=== PATIENT | female | born 1930 | race Caucasian/White ===

== ENCOUNTER 2016-05-02 09:27 | Observation (INO) | payer MEDICARE, OTHER ==
[2016-05-02] MEDS ORDERED: Albuterol/Ipratropium NEB.SOL* Albuterol 2.5 MG/Ipratropium 0.5 MG 3 ML INH ONE (10:56)
[2016-05-02 11:38] LABS: Hematocrit 43 % (35-47); Hemoglobin 13.8 g/dl (12.0-16.0); Mean Corpuscular HGB Conc 32 g/dl (31-36); Mean Corpuscular Hemoglobin 29 pg (27-31); Mean Corpuscular Volume 90 fL (80-97); Mean Platelet Volume 8 um3 (7.4-10.4); Red Blood Count 4.77 10^6/ul (4.0-5.4); Red Cell Distribution Width 15 % (10.5-15); White Blood Count 14.3 10^3/ul (3.5-10.8)
[2016-05-02] MEDS: NS 0.9% 1000 ML* 2,000 ML IV ONE ×2 (11:44→12:25)
--- NOTE | 2016-05-02 11:52 | RAD ---
INDICATION: Cough, shortness of breath, back pain. COMPARISON: Comparison is made with a prior chest x-ray study from July 08, 2015. TECHNIQUE: Dual-energy PA and lateral views of the chest were obtained. FINDINGS: The heart is within normal limits in size. Mediastinal and hilar contours appear within normal limits. The lungs are hyperinflated and clear. No pleural effusion is seen. The vertebra are osteopenic. No fracture is noted. IMPRESSION: FINDINGS SUGGESTIVE OF COPD, NO EVIDENCE FOR ACUTE FINDING.
[2016-05-02 11:55] LABS: Albumin 3.7 g/dL (3.2-5.2); BUN/Creatinine Ratio 18.1 (8-20); C Reactive Protein 21.1 mg/L (< 5.00); Calcium 9.4 mg/dL (8.6-10.3); EGFR African American 44.6 (>60); EGFR Non-African American 34.7 (>60); Globulin 3.6 g/dL (2-4); Magnesium 1.6 mg/dL (1.9-2.7); Potassium 3.9 mmol/L (3.5-5.0); Total Bilirubin 0.6 mg/dL (0.2-1.0); Total Protein 7.3 g/dL (6.4-8.9)
[2016-05-02 11:56] LABS: Troponin I 0.03 ng/mL (<0.04)
[2016-05-02 12:21] LABS: TSH (Thyroid Stimulating Horm) 3.43 mcIU/mL (0.34-5.60)
--- NOTE | 2016-05-02 12:27 | RAD ---
HISTORY: Left inguinal pain COMPARISONS: None TECHNIQUE: Multiple transverse and longitudinal images were obtained of the area of pain left inguinal region using grayscale and color Doppler imaging FINDINGS: Normal fatty and muscular tissue is noted. There is no appreciable hernia. There is no sonographic abnormality in the area of palpable abnormality. IMPRESSION: NO SONOGRAPHIC ABNORMALITY IN THE AREA OF PALPABLE ABNORMALITY. A NEGATIVE REPORT SHOULD NOT PRECLUDE OR DELAY THE EVALUATION OF A CLINICALLY SUSPICIOUS PALPABLE ABNORMALITY
[2016-05-02] MEDS ORDERED: Azithromycin IV(*) 500 MG in NS 0.9% 250 ML* 250 ML IVPB ONE (12:52)
[2016-05-02] MEDS ORDERED: cefTRIAXone(*) 1 GM in NS 0.9% 50 ML* 50 ML IVPB ONE (12:52)
[2016-05-02] MEDS ORDERED: Magnesium Sulfate 2 GM IV* 2 GM/50 ML BAG IVPB ONE (12:55)
[2016-05-02] MEDS: amLODIPine TAB* 5 MG PO SCH (14:22)
--- NOTE | 2016-05-02 14:25 | ADMNOTE ---
Subjective Date of Service: 05/02/16 Interval History: ADMISSION HISTORY AND PHYSICAL EXAM: Allergies Allergy/AdvReac Type Severity Reaction Status Date / Time Meperidine Allergy Unknown Verified 05/02/16 10:40 Reaction Details Sulfa Antibiotics Allergy Unknown Verified 05/02/16 10:40 Reaction Details Codeine AdvReac Stomach Verified 05/02/16 10:40 Cramps Home Medications Medication Instructions Recorded Confirmed Type Hydrochlorothiazide 25 mg PO DAILY 06/24/15 05/02/16 History [Hydrochlorothiazide-] Benzonatate [Benzonatate 200 MG 200 mg PO TID 05/02/16 05/02/16 History CAP] Losartan TAB* [Cozaar TAB*] 25 mg PO BID 05/02/16 05/02/16 History Omeprazole CAP* [Prilosec CAP* 20 20 mg PO DAILY 05/02/16 05/02/16 History MG] Rivaroxaban TAB(*) [Xarelto 15 15 mg PO DAILY 05/02/16 05/02/16 History mg(*)] Spironolactone [Aldactone 25 MG-] 25 mg PO DAILY 05/02/16 05/02/16 History HPI: The patient has had a cough for about a month, non-productive. Dr. Salomon rx' s benzonatate 200 mg but it didn't help at all. She was feeling more weak today and called her dil to drive her to the ED. She did not take her meds today. Family History: Findings - Melanoma, atrial fib, CAD, older sister with breast cancer. Social History: Findings - Son Fab is her SDM. Lives alone. Quit smoking many years ago. No alcohol abuse. Past Medical History: Unchanged from Admission - Chronic atrial fib, nonischemic cardiomyopathy, HTN, arthritis, TIA, partial hysterectomy, R knee surgery, choleycystectomy, disc surgery. Review of Systems - Measurements Intake and Output: Intake and Output Last 24 Hours 04/30/16 05/01/16 05/02/16 05/03/16 06:59 06:59 06:59 06:59 Intake Total 2049 Balance 2049 Weight 145 lb 9.6 oz Intake: IV Fluids 2049 - Review of Systems Constitutional Symptoms: Positive: Weight Gain Dermatology: Positive: Normal HEENT: Positive: Other - chronic hearing loss Eyes: Positive: Normal Thyroid: Positive: Normal Pulmonary: Positive: Cough Cardiology: Positive: Normal Gastroenterology: Positive: Normal Endocrinology: Positive: Normal Hematologic/Lymphatic: Negative: Anemia, Easy Brusing, Hx Leukemia, Hx Lymphoma, Use of Anticoagulant, Use of Antiplatelet Drugs, Other Neurology: Positive: Other - weakness Psychiatry: Positive: Normal Allergic/Immunologic: Negative: Hx Anaphylaxis, Hx Angioedema, Hx Environmental, Hx Seasonal, Athsma, Hx HIV, Immunocompromise, Swollen Glands LymphNodes, Other Objective Active Medications: Amlodipine Besylate (Norvasc Tab*) 2.5 mg PO DAILY [facility] Omeprazole (Prilosec Cap*) 20 mg PO DAILY [facility] Rivaroxaban (Xarelto(*)) 15 mg PO DAILY [facility] Spironolactone (Aldactone Tab*) 25 mg PO DAILY [facility] Vital Signs 05/02/16 05/02/16 05/02/16 09:30 11:54 11:59 Temperature 98.0 F Pulse Rate 91 69 72 Respiratory 18 17 Rate Blood Pressure 149/63 (mmHg) O2 Sat by Pulse 100 100 100 Oximetry 05/02/16 05/02/16 05/02/16 12:00 12:04 12:30 Temperature Pulse Rate 73 79 65 Respiratory Rate Blood Pressure 182/58 175/64 167/66 (mmHg) O2 Sat by Pulse 100 99 99 Oximetry 05/02/16 13:00 Temperature Pulse Rate 72 Respiratory Rate Blood Pressure 170/65 (mmHg) O2 Sat by Pulse 98 Oximetry Oxygen Devices in Use Now: None Appearance: Alert, supine on ED stretcher. In good spirits. Looks comfortable. Mild cough once during my visit. Eyes: No Scleral Icterus Ears/Nose/Mouth/Throat: Clear Oropharnyx, Mucous Membranes Moist Neck: NL Appearance and Movements; NL JVP, No Thyroid Enlargement, Masses Respiratory: Symmetrical Chest Expansion and Respiratory Effort, Clear to Auscultation, Clear to Percussion Cardiovascular: NL Sounds; No Murmurs; No JVD, RRR, No Edema, - Abdominal: NL Sounds; No Tenderness; No Distention, No Hepatosplenomegaly, - Extremities: No Edema, No Clubbing, Cyanosis, - Skin: No Rash or Ulcers, No Nodules or Sclerosis, - Neurological: Alert and Oriented x 3, NL Sensation Result Diagrams: 05/02/16 11:20 05/02/16 11:20 Assess/Plan/Problems-Billing Assessment: - Patient Problems (1) Cough Current Visit: Yes Status: Acute Code(s): R05 - COUGH SNOMED Code(s): 23764195 Comment: ? losartan reaction. Change to amlodipine. Azithromycin for possible acute bronchitis. (2) CKD (chronic kidney disease), stage III Current Visit: No Status: Chronic Priority: Medium Code(s): N18.3 - CHRONIC KIDNEY DISEASE, STAGE 3 (MODERATE) SNOMED Code(s): 390385666 Comment: Stable. (3) Afib Current Visit: No Status: Chronic Priority: Medium Code(s): I48.91 - UNSPECIFIED ATRIAL FIBRILLATION SNOMED Code(s): 46241488 Comment: Rate controlled on no cardiac meds. Continue Xarelto, renal dose. (4) Hyponatremia Current Visit: Yes Status: Acute Code(s): E87.1 - HYPO-OSMOLALITY AND HYPONATREMIA SNOMED Code(s): 32692864 Comment: Stop thiazide. Fup as outpt.
[2016-05-02] MEDS ORDERED: Enoxaparin(*) 30 MG/0.3 ML SYR SUBCUT SCH (15:00)
[2016-05-02] MEDS: traMADol TAB* 50 MG PO PRN ×2 (15:41→22:33)
[2016-05-02] MEDS ORDERED: Rivaroxaban TAB(*) 15 MG PO SCH (17:00)
--- NOTE | 2016-05-02 17:59 | ED ---
Constantin Sykes Erika, scribed for Nicola Vincent MD on 05/02/16 at 1057 . Respiratory - HPI Summary HPI Summary: Patient is an 85-year-old female presenting to the ED with a CC of cough for the past 3.5 weeks. Patient reports that cough has been constant, with occasional dark sputum. Cough was not alleviated by tessalon perles, and patient has been feeling increasingly weak and SOB, so her daughter brought her to the ED today. Associated symptoms include decreased appetite and upper back pain, which is constant but aggravated by cough. Patient denies fever, chills, chest pain, abdominal pain, urinary symptoms, abnormal BMs, and edema. Patient also complains of left groin past for the past few days, which radiates into the left leg only when walking. She denies associated masses. Patient denies Hx COPD and asthma, and does not use an inhaler. Hx HTN. Denies Hx diabetes. Patient lives alone, and is a former smoker. - History of Current Complaint Chief Complaint: EDGeneral Stated Complaint: BACK/GROIN PAIN-COUGH Time Seen by Provider: 05/02/16 10:30 Hx Obtained From: Patient, Family/Mid Level Game Designer - Daughter Onset/Duration: Gradual Onset, Lasting Weeks - 3.5 weeks, Worse Since - gradually Timing: Constant Initial Severity: Mild Current Severity: Moderate Pain Intensity: 10 Character: Cough (Productive) - occasionally productive Sputum Amount: Scant Aggravating Factor(s): URI Alleviating Factor(s): Nothing Associated Signs and Symptoms: SOB, URI - Allergy/Home Medications Allergies/Adverse Reactions: Allergies Allergy/AdvReac Type Severity Reaction Status Date / Time Meperidine Allergy Unknown Verified 05/02/16 10:40 Reaction Details Sulfa Antibiotics Allergy Unknown Verified 05/02/16 10:40 Reaction Details Codeine AdvReac Stomach Verified 05/02/16 10:40 Cramps Home Medications: Home Medications Benzonatate [Benzonatate 200 MG CAP] 200 mg PO TID 05/02/16 [History Confirmed 05/02/16] Losartan TAB* [Cozaar TAB*] 25 mg PO BID 05/02/16 [History Confirmed 05/02/16] Omeprazole CAP* [Prilosec CAP* 20 MG] 20 mg PO DAILY 05/02/16 [History Confirmed 05/02/16] Rivaroxaban TAB(*) [Xarelto 15 mg(*)] 15 mg PO DAILY 05/02/16 [History Confirmed 05/02/16] Spironolactone [Aldactone 25 MG-] 25 mg PO DAILY 05/02/16 [History Confirmed 10/11] PMH/Surg Hx/FS Hx/Imm Hx Endocrine/Hematology History: Reports: Hx Anticoagulant Therapy - Xeralto Denies: Hx Diabetes Cardiovascular History: Reports: Hx Atrial Fibrillation, Hx Congestive Heart Failure, Hx Hypertension, Other Cardiovascular Problems/Disorders - Cardioverted 06/29/2015 GI History: Reports: Hx Gastroesophageal Reflux Disease Musculoskeletal History: Reports: Hx Arthritis - both feet, knees, legs, Hx Back Problems - ruptured disc with repair Sensory History: Reports: Hx Contacts or Glasses, Hx Hearing Aid, Hx Hearing Problem Opthamlomology History: Reports: Hx Contacts or Glasses Neurological History: Reports: Hx Transient Ischemic Attacks (TIA) - 2010; had right hand weakness and occasional tremors - Surgical History Surgery Procedure, Year, and Place: herniated disc repair 1962, choleystectomy 1966, rt knee arthroplasty, BLADDER SLING, APPENDECTOMY Hx Anesthesia Reactions: No - Immunization History Date of Tetanus Vaccine: none Date of Influenza Vaccine: none Infectious Disease History: No Infectious Disease History: Denies: Hx Clostridium Difficile, Hx Hepatitis, Hx Human Immunodeficiency Virus (HIV), Hx of Known/Suspected MRSA, Hx Shingles, Hx Tuberculosis, Hx Known/ Suspected VRE, Hx Known/Suspected VRSA, History Other Infectious Disease, Traveled Outside the [place] in Last 30 Days - Family History Known Family History: Positive: Other - breast CA - Social History Lives: Alone Alcohol Use: None Hx Substance Use: No Substance Use Type: Reports: None Hx Tobacco Use: Yes Smoking Status (MU): Former Smoker Length of Time of Smoking/Using Tobacco: QUIT IN THE 1970s Have You Smoked in the Last Year: No Review of Systems Negative: Fever, Chills Negative: Chest Pain Positive: Shortness Of Breath, Cough Gastrointestinal: Other - decreased appetite Negative: Abdominal Pain Genitourinary: Other - left groin pain Negative: dysuria, frequency Positive: Myalgia - upper back. Negative: Edema Positive: Weakness All Other Systems Reviewed And Are Negative: Yes Physical Exam Triage Information Reviewed: Yes Vital Signs On Initial Exam: Initial Vitals Temp Pulse Resp BP Pulse Ox 98.0 F 91 18 149/63 100 05/02/16 09:30 05/02/16 09:30 05/02/16 09:30 05/02/16 09:30 05/02/16 09:30 Vital Signs Reviewed: Yes Appearance: Positive: No Pain Distress, Ill-Appearing - mildly Skin: Positive: Warm, Skin Color Reflects Adequate Perfusion, Dry Head/Face: Positive: Normal Head/Face Inspection Eyes: Positive: EOMI, BETI ENT: Positive: Normal ENT inspection Neck: Positive: Supple, Nontender Respiratory/Lung Sounds: Positive: Breath Sounds Present, Rhonchi Cardiovascular: Positive: RRR Abdomen Description: Positive: Nontender, Soft Bowel Sounds: Positive: Present Pelvic Exam: Positive: other - Tenderness to the left groin with no masses palpated Musculoskeletal: Positive: Normal, Strength/ROM Intact Neurological: Positive: Normal, Sensory/Motor Intact, Alert, Oriented to Person Place, Time Psychiatric: Positive: Affect/Mood Appropriate - Robb Coma Scale Coma Scale Total: 15 Diagnostics - Vital Signs Vital Signs Temp Pulse Resp BP Pulse Ox 05/02/16 09:30 98.0 F 91 18 149/63 100 - Laboratory Lab Results: Lab Results 05/02/16 05/02/16 05/02/16 Range/Units 11:20 11:20 11:20 WBC 14.3 H (3.5-10.8) 10^3/ul RBC 4.77 (4.0-5.4) 10^6/ul Hgb 13.8 (12.0-16.0) g/dl Hct 43 (35-47) % MCV 90 (80-97) fL MCH 29 (27-31) pg MCHC 32 (31-36) g/dl RDW 15 (10.5-15) % Plt Count 302 (150-450) 10^3/ul MPV 8 (7.4-10.4) um3 Neut % (Auto) 81.4 (38-83) % Lymph % (Auto) 10.2 L (25-47) % Sullivan % (Auto) 7.8 (1-9) % Eos % (Auto) 0.2 (0-6) % Baso % (Auto) 0.4 (0-2) % Absolute Neuts (auto) 11.7 H (1.5-7.7) 10^3/ul Absolute Lymphs (auto) 1.5 (1.0-4.8) 10^3/ul Absolute Monos (auto) 1.1 H (0-0.8) 10^3/ul Absolute Eos (auto) 0 (0-0.6) 10^3/ul Absolute Basos (auto) 0.1 (0-0.2) 10^3/ul Absolute Nucleated RBC 0 10^3/ul Nucleated RBC % 0 INR (Anticoag Therapy) 1.98 H (0.89-1.11) APTT 70.4 H (26.0-36.3) seconds D-Dimer, Quantitative 225 (Less Than 230) ng/mL Sodium 131 L (133-145) mmol/L Potassium 3.9 (3.5-5.0) mmol/L Chloride 98 L (101-111) mmol/L Carbon Dioxide 27 (22-32) mmol/L Anion Gap 6 (2-11) mmol/L BUN 26 H (6-24) mg/dL Creatinine 1.44 H (0.51-0.95) mg/dL Est GFR ( Amer) 44.6 (>60) Est GFR (Non-Af Amer) 34.7 (>60) BUN/Creatinine Ratio 18.1 (8-20) Glucose 226 H (70-100) mg/dL Lactic Acid (0.5-2.0) mmol/L Calcium 9.4 (8.6-10.3) mg/dL Magnesium 1.6 L (1.9-2.7) mg/dL Total Bilirubin 0.60 (0.2-1.0) mg/dL AST 22 (13-39) U/L ALT 22 (7-52) U/L Alkaline Phosphatase 79 (34-104) U/L Total Creatine Kinase 32 (10-223) U/L CK-MB (CK-2) 2.9 (0.6-6.3) ng/mL Troponin I 0.03 (<0.04) ng/mL C-Reactive Protein 21.10 H (< 5.00) mg/L B-Natriuretic Peptide ( - 100) pg/mL Total Protein 7.3 (6.4-8.9) g/dL Albumin 3.7 (3.2-5.2) g/dL Globulin 3.6 (2-4) g/dL Albumin/Globulin Ratio 1.0 (1-3) Lipase 36 (11.0-82.0) U/L TSH 3.43 (0.34-5.60) mcIU/mL 05/02/16 05/02/16 Range/Units 11:20 11:20 WBC (3.5-10.8) 10^3/ul RBC (4.0-5.4) 10^6/ul Hgb (12.0-16.0) g/dl Hct (35-47) % MCV (80-97) fL MCH (27-31) pg MCHC (31-36) g/dl RDW (10.5-15) % Plt Count (150-450) 10^3/ul MPV (7.4-10.4) um3 Neut % (Auto) (38-83) % Lymph % (Auto) (25-47) % Sullivan % (Auto) (1-9) % Eos % (Auto) (0-6) % Baso % (Auto) (0-2) % Absolute Neuts (auto) (1.5-7.7) 10^3/ul Absolute Lymphs (auto) (1.0-4.8) 10^3/ul Absolute Monos (auto) (0-0.8) 10^3/ul Absolute Eos (auto) (0-0.6) 10^3/ul Absolute Basos (auto) (0-0.2) 10^3/ul Absolute Nucleated RBC 10^3/ul Nucleated RBC % INR (Anticoag Therapy) (0.89-1.11) APTT (26.0-36.3) seconds D-Dimer, Quantitative (Less Than 230) ng/mL Sodium (133-145) mmol/L Potassium (3.5-5.0) mmol/L Chloride (101-111) mmol/L Carbon Dioxide (22-32) mmol/L Anion Gap (2-11) mmol/L BUN (6-24) mg/dL Creatinine (0.51-0.95) mg/dL Est GFR ( Amer) (>60) Est GFR (Non-Af Amer) (>60) BUN/Creatinine Ratio (8-20) Glucose (70-100) mg/dL Lactic Acid 2.3 H* (0.5-2.0) mmol/L Calcium (8.6-10.3) mg/dL Magnesium (1.9-2.7) mg/dL Total Bilirubin (0.2-1.0) mg/dL AST (13-39) U/L ALT (7-52) U/L Alkaline Phosphatase (34-104) U/L Total Creatine Kinase (10-223) U/L CK-MB (CK-2) (0.6-6.3) ng/mL Troponin I (<0.04) ng/mL C-Reactive Protein (< 5.00) mg/L B-Natriuretic Peptide 301 H ( - 100) pg/mL Total Protein (6.4-8.9) g/dL Albumin (3.2-5.2) g/dL Globulin (2-4) g/dL Albumin/Globulin Ratio (1-3) Lipase (11.0-82.0) U/L TSH (0.34-5.60) mcIU/mL Result Diagrams: 05/02/16 11:20 05/02/16 11:20 Lab Statement: Any lab studies that have been ordered have been reviewed, and results considered in the medical decision making process. - Radiology CXR Radiology Interpretation Completed By: Radiologist - IMPRESSION: FINDINGS SUGGESTIVE OF COPD, NO EVIDENCE FOR ACUTE FINDING. - Ultrasound No standard instances Ultrasound Interpretation Completed By: Radiologist - Left soft tissue US - IMPRESSION: NO SONOGRAPHIC ABNORMALITY IN THE AREA OF PALPABLE ABNORMALITY. A NEGATIVE REPORT SHOULD NOT PRECLUDE OR DELAY THE EVALUATION OF A CLINICALLY SUSPICIOUS PALPABLE ABNORMALITY - EKG 11:40 Cardiac Rate: NL - at 68 bpm EKG Rhythm: Atrial Fibrillation EKG Interpretation: Sagging ST in the lateral leads Re-Evaluation - Re-Evaluation First Eval Re-Evaluation Time: 13:03 Comment: Discussed lab and CXR results with patient and daughter. Discussed possibility of admission, and patient would like to be admitted. Disposition - Course Assessment/Plan: ADMIT TO HOSPITALIST STABLE. - Diagnoses Provider Diagnoses: Bronchitis, Weakness - Physician Notifications Discussed Care Of Patient With: Dr. Martines (hospitalist) at 13:02 - agrees to admit Discharge - Discharge Plan Condition: Stable Disposition: ADMITTED TO [facility] documentation as recorded by the Constantin friedman Erika accurately reflects the service I personally performed and the decisions made by me, Nicola Vincent MD.
[2016-05-02 22:56] LABS: Urine Bilirubin Negative (Negative); Urine Glucose Negative (Negative); Urine Nitrite Negative (Negative)
[2016-05-03] MEDS: traMADol TAB* 50 MG PO PRN ×2 (04:37→11:14)
[2016-05-03] MEDS ORDERED: oxyCODONE/Acetamin 5/325 MG* TAB PO PRN (08:20)
[2016-05-03] MEDS: amLODIPine TAB* 5 MG PO SCH (08:52)
[2016-05-03] MEDS ORDERED: Spironolactone TAB* 25 MG PO SCH (09:00)
[2016-05-03] MEDS ORDERED: Rivaroxaban TAB(*) 15 MG PO SCH (09:00)
[2016-05-03] MEDS ORDERED: Omeprazole CAP* 20 MG PO SCH (09:00)
[2016-05-03] MEDS ORDERED: Azithromycin TAB* 250 MG PO SCH (11:00)
--- NOTE | 2016-05-03 11:10 | RAD ---
Indication: Pelvic pain, inability to walk. Single view of the pelvis demonstrates sacroiliac joints demonstrate mild degenerative changes. Pelvic ring is intact. No fractures identified. IMPRESSION: Mild degenerative changes of the left sacroiliac joint. No fracture is noted.
--- NOTE | 2016-05-03 12:58 | DCNOTE ---
"Subjective Date of Service: 05/03/16 Interval History: Cough better. Still has L groin pain only when walking or getting up. Family History: Findings - Melanoma, atrial fib, CAD, older sister with breast cancer. Social History: Findings - Son Fab is her SDM. Lives alone. Quit smoking many years ago. No alcohol abuse. Past Medical History: Unchanged from Admission - Chronic atrial fib, nonischemic cardiomyopathy, HTN, arthritis, TIA, partial hysterectomy, R knee surgery, choleycystectomy, disc surgery. Objective Active Medications: Amlodipine Besylate (Norvasc Tab*) 2.5 mg PO DAILY [facility] Last Admin: 05/03/16 08:52 Dose: 2.5 mg Azithromycin (Zithromax Tab*) 250 mg PO DAILY [facility] Last Admin: 05/03/16 11:14 Dose: 250 mg Omeprazole (Prilosec Cap*) 20 mg PO DAILY [facility] Last Admin: 05/03/16 08:51 Dose: 20 mg Oxycodone/Acetaminophen (Percocet 5/325 Tab*) 1 tab PO Q4H PRN PRN Reason: PAIN Last Admin: 05/03/16 08:53 Dose: 1 tab Rivaroxaban (Xarelto(*)) 15 mg PO 1700 [facility] Last Admin: 05/02/16 16:39 Dose: 15 mg Spironolactone (Aldactone Tab*) 25 mg PO DAILY [facility] Last Admin: 05/03/16 08:51 Dose: 25 mg Tramadol HCl (Ultram*) 50 mg PO Q6H PRN PRN Reason: PAIN Last Admin: 05/03/16 11:14 Dose: 50 mg Vital Signs 05/02/16 05/02/16 05/02/16 13:30 14:00 15:15 Temperature 97.8 F Pulse Rate 70 84 79 Respiratory 14 21 18 Rate Blood Pressure 151/61 168/70 154/73 (mmHg) O2 Sat by Pulse 96 98 100 Oximetry 05/02/16 05/02/16 05/02/16 15:20 15:41 17:37 Temperature Pulse Rate Respiratory 18 18 15 Rate Blood Pressure (mmHg) O2 Sat by Pulse Oximetry 05/02/16 05/02/16 05/02/16 20:33 22:33 23:29 Temperature 98.1 F 97.6 F Pulse Rate 72 78 Respiratory 18 18 20 Rate Blood Pressure 135/44 115/49 (mmHg) O2 Sat by Pulse 95 99 Oximetry 05/03/16 05/03/16 05/03/16 00:33 04:02 04:37 Temperature 98.2 F Pulse Rate 74 Respiratory 18 20 18 Rate Blood Pressure 140/62 (mmHg) O2 Sat by Pulse 97 Oximetry 05/03/16 05/03/16 05/03/16 06:37 07:44 08:00 Temperature 97.5 F Pulse Rate 67 Respiratory 16 18 18 Rate Blood Pressure 139/60 (mmHg) O2 Sat by Pulse 100 Oximetry 05/03/16 05/03/16 05/03/16 08:01 08:53 11:14 Temperature Pulse Rate Respiratory 18 15 16 Rate Blood Pressure 150/68 (mmHg) O2 Sat by Pulse Oximetry Oxygen Devices in Use Now: None Appearance: Alert, in a chair. In good spirits. Looks comfortable. Ears/Nose/Mouth/Throat: Clear Oropharnyx, Mucous Membranes Moist Neck: NL Appearance and Movements; NL JVP, No Thyroid Enlargement, Masses Respiratory: Symmetrical Chest Expansion and Respiratory Effort, Clear to Auscultation, Clear to Percussion Cardiovascular: - - No L groin mass or tenderness Neurological: Alert and Oriented x 3, NL Sensation, - - Apparently very painful for her to walk, took 3 tiny steps for me. Result Diagrams: 05/02/16 11:20 05/02/16 11:20 Additional Lab and Data: Lab Results 05/02/16 05/02/16 05/02/16 Range/Units 11:20 11:20 11:20 WBC 14.3 H (3.5-10.8) 10^3/ul RBC 4.77 (4.0-5.4) 10^6/ul Hgb 13.8 (12.0-16.0) g/dl Hct 43 (35-47) % MCV 90 (80-97) fL MCH 29 (27-31) pg MCHC 32 (31-36) g/dl RDW 15 (10.5-15) % Plt Count 302 (150-450) 10^3/ul MPV 8 (7.4-10.4) um3 Neut % (Auto) 81.4 (38-83) % Lymph % (Auto) 10.2 L (25-47) % [place] % (Auto) 7.8 (1-9) % Eos % (Auto) 0.2 (0-6) % Baso % (Auto) 0.4 (0-2) % Absolute Neuts (auto) 11.7 H (1.5-7.7) 10^3/ul Absolute Lymphs (auto) 1.5 (1.0-4.8) 10^3/ul Absolute Monos (auto) 1.1 H (0-0.8) 10^3/ul Absolute Eos (auto) 0 (0-0.6) 10^3/ul Absolute Basos (auto) 0.1 (0-0.2) 10^3/ul Absolute Nucleated RBC 0 10^3/ul Nucleated RBC % 0 INR (Anticoag Therapy) 1.98 H (0.89-1.11) APTT 70.4 H (26.0-36.3) seconds D-Dimer, Quantitative 225 (Less Than 230) ng/mL Sodium 131 L (133-145) mmol/L Potassium 3.9 (3.5-5.0) mmol/L Chloride 98 L (101-111) mmol/L Carbon Dioxide 27 (22-32) mmol/L Anion Gap 6 (2-11) mmol/L BUN 26 H (6-24) mg/dL Creatinine 1.44 H (0.51-0.95) mg/dL Est GFR ( Amer) 44.6 (>60) Est GFR (Non-Af Amer) 34.7 (>60) BUN/Creatinine Ratio 18.1 (8-20) Glucose 226 H (70-100) mg/dL Lactic Acid (0.5-2.0) mmol/L Calcium 9.4 (8.6-10.3) mg/dL Magnesium 1.6 L (1.9-2.7) mg/dL Total Bilirubin 0.60 (0.2-1.0) mg/dL AST 22 (13-39) U/L ALT 22 (7-52) U/L Alkaline Phosphatase 79 (34-104) U/L Total Creatine Kinase 32 (10-223) U/L CK-MB (CK-2) 2.9 (0.6-6.3) ng/mL Troponin I 0.03 (<0.04) ng/mL C-Reactive Protein 21.10 H (< 5.00) mg/L B-Natriuretic Peptide ( - 100) pg/mL Total Protein 7.3 (6.4-8.9) g/dL Albumin 3.7 (3.2-5.2) g/dL Globulin 3.6 (2-4) g/dL Albumin/Globulin Ratio 1.0 (1-3) Lipase 36 (11.0-82.0) U/L TSH 3.43 (0.34-5.60) mcIU/mL 05/02/16 05/02/16 Range/Units 11:20 11:20 WBC (3.5-10.8) 10^3/ul RBC (4.0-5.4) 10^6/ul Hgb (12.0-16.0) g/dl Hct (35-47) % MCV (80-97) fL MCH (27-31) pg MCHC (31-36) g/dl RDW (10.5-15) % Plt Count (150-450) 10^3/ul MPV (7.4-10.4) um3 Neut % (Auto) (38-83) % Lymph % (Auto) (25-47) % [place] % (Auto) (1-9) % Eos % (Auto) (0-6) % Baso % (Auto) (0-2) % Absolute Neuts (auto) (1.5-7.7) 10^3/ul Absolute Lymphs (auto) (1.0-4.8) 10^3/ul Absolute Monos (auto) (0-0.8) 10^3/ul Absolute Eos (auto) (0-0.6) 10^3/ul Absolute Basos (auto) (0-0.2) 10^3/ul Absolute Nucleated RBC 10^3/ul Nucleated RBC % INR (Anticoag Therapy) (0.89-1.11) APTT (26.0-36.3) seconds D-Dimer, Quantitative (Less Than 230) ng/mL Sodium (133-145) mmol/L Potassium (3.5-5.0) mmol/L Chloride (101-111) mmol/L Carbon Dioxide (22-32) mmol/L Anion Gap (2-11) mmol/L BUN (6-24) mg/dL Creatinine (0.51-0.95) mg/dL Est GFR ( Amer) (>60) Est GFR (Non-Af Amer) (>60) BUN/Creatinine Ratio (8-20) Glucose (70-100) mg/dL Lactic Acid 2.3 H* (0.5-2.0) mmol/L Calcium (8.6-10.3) mg/dL Magnesium (1.9-2.7) mg/dL Total Bilirubin (0.2-1.0) mg/dL AST (13-39) U/L ALT (7-52) U/L Alkaline Phosphatase (34-104) U/L Total Creatine Kinase (10-223) U/L CK-MB (CK-2) (0.6-6.3) ng/mL Troponin I (<0.04) ng/mL C-Reactive Protein (< 5.00) mg/L B-Natriuretic Peptide 301 H ( - 100) pg/mL Total Protein (6.4-8.9) g/dL Albumin (3.2-5.2) g/dL Globulin (2-4) g/dL Albumin/Globulin Ratio (1-3) Lipase (11.0-82.0) U/L TSH (0.34-5.60) mcIU/mL Assess/Plan/Problems-Billing Assessment: - Patient Problems (1) Cough Current Visit: Yes Status: Acute Code(s): R05 - COUGH SNOMED Code(s): 72270861 Comment: ? losartan reaction. Change to amlodipine. Azithromycin for possible acute bronchitis. Rx for latter two transmitted. (2) CKD (chronic kidney disease), stage III Current Visit: No Status: Chronic Priority: Medium Code(s): N18.3 - CHRONIC KIDNEY DISEASE, STAGE 3 (MODERATE) SNOMED Code(s): 819268700 Comment: Stable. (3) Afib Current Visit: No Status: Chronic Priority: Medium Code(s): I48.91 - UNSPECIFIED ATRIAL FIBRILLATION SNOMED Code(s): 37164316 Comment: Rate controlled on no cardiac meds. Continue Xarelto, renal dose. (4) Hyponatremia Current Visit: Yes Status: Acute Code(s): E87.1 - HYPO-OSMOLALITY AND HYPONATREMIA SNOMED Code(s): 16998576 Comment: Stop thiazide. Fup as outpt. (5) Gait disorder Current Visit: Yes Status: Acute Code(s): R26.9 - UNSPECIFIED ABNORMALITIES OF GAIT AND MOBILITY SNOMED Code(s): 11729778 Comment: Patient thinks the pain is due to her coughing. She may be right. Pelvis X-ray unremarkable. US L groin neg. Pt prefers going home to any further w/up or hospitalization. Status and Disposition: Discharge now. Fup Dr. Salomon. Search Terms: li ibrahim, 1930 Search Date: 05/03/2016 12:47:26 PM This report was requested by: Darrin Martines | Reference #: [id number] There are no results for the search terms that you entered."
[2016-05-03 13:12] VITALS: BP 133/46
--- NOTE | 2016-05-04 02:09 | DS ---
DISCHARGE SUMMARY: DATE OF ADMISSION: DATE OF DISCHARGE: 05/03/16 HOSPITAL COURSE: This 85-year-old woman presented because of cough she has had for about a month. She had tried benzonatate 200 mg without any benefit. She probably has tried every uhkr-jgg-cegmiys cough syrup too. Basically nonproductive cough. It may have gotten a little worse in the last week. The patient was given azithromycin 500 mg in the ER, 250 mg on the day for discharge. She will complete a 5-day course at home. She said her losartan was discontinued. She said she felt the cough was a little better on the day of discharge. The patient complained of left groin pain. She thought it was precipitated by coughing and exacerbated by coughing. It interfered with her walking. She had ultrasound of that area in the emergency room, which showed no significant abnormalities. I also did an x-ray of the pelvis, which showed minor degenerative changes, but no fracture or dislocation. The patient had a lot of difficulty walking; however, she prefer to go home. If indeed her cough improves and the cough was responsible for her pain, this ought to subside over the next few days. She had a Percocet here in the hospital and tolerated that well and I gave her a prescription for supply at home. FINAL DIAGNOSES: 1. Cough possibly related to losartan and/or acute bronchitis. 2. Chronic kidney disease. 3. Atrial fibrillation. 4. Hyponatremia, possibly related to thiazide. DISCHARGE MEDICATIONS: 1. Azithromycin 250 mg daily for 3 more days. 2. Amlodipine 2.5 mg daily. 3. Oxycodone/acetaminophen 5/325 one every 4 hours p.r.n., not to exceed 4 per day. 4. Spironolactone 25 mg daily. 5. Omeprazole 20 mg daily. 6. Rivaroxaban 15 mg daily. The following medicines have been discontinued: Losartan and hydrochlorothiazide. CC: Dr. Salomon * [id number]/[facility] #: [id number] [facility]ITALCharles
== END 2016-05-03 15:00 | disposition home or self-care (01) ==
LOC: ED 09:27 → MEDTELE 13:03
PROVIDERS: ADMIT Internal Medicine; ATTEND Internal Medicine
DX: R05 Cough (principal); I13.0 Hypertensive heart and chronic kidney disease with heart failure and stage 1 through stage 4 chronic kidney disease, or unspecified chronic kidney disease; N18.2 Chronic kidney disease, stage 2 (mild); I50.9 Heart failure, unspecified; I48.91 Unspecified atrial fibrillation; Z79.01 Long term (current) use of anticoagulants; R06.02 Shortness of breath; E87.1 Hypo-osmolality and hyponatremia; Z79.899 Other long term (current) drug therapy; Z87.891 Personal history of nicotine dependence; Z88.2 Allergy status to sulfonamides; Z88.5 Allergy status to narcotic agent; Z88.8 Allergy status to other drugs, medicaments and biological substances
CPT/HCPCS: 36415; 71020; 72170; 80053; 81003; 82550; 82553; 83605; 83690; 83735; 83880; 84443; 84484; 85025; 85379; 85610; 85730; 86140; 87040; 93005; 96365; 96367; 99283; A9270-GY; G0378; J0456; J0696; J3475

== ENCOUNTER 2016-10-23 06:05 | Day surgery (SDC) | payer MEDICARE, OTHER ==
[~2016-10-23 06:05] MED LIST: Buffered Lidocaine 0.9% SYRIN* 5 ML/SYR SYRINGE INTRADERM ONE
[2016-10-23] MEDS ORDERED: ceFAZolin 2 GM PREMIX (*) 50 ML IVPB ONE (06:08)
[2016-10-23] MEDS ORDERED: Buffered Lidocaine 0.9% SYRIN* 5 ML/SYR SYRINGE ONE (06:08)
[2016-10-23] MEDS ORDERED: Methylene Blue 0.5 %* 50 MG/10 ML AMP IV ONE (07:09)
[2016-10-23] MEDS ORDERED: Mineral Oil Sterile, TOPICAL* 25 ML BTL ONE (07:09)
[2016-10-23] MEDS ORDERED: Bupivacaine 0.25% SDV* 30 ML ONE (07:42)
[2016-10-23] MEDS ORDERED: Lidocaine 2% W/EPI 1:100,000* 20 ML MDV ONE (07:42)
[2016-10-23] MEDS ORDERED: fentaNYL* 50 MCG/ML 2 ML VIAL (100 MCG VIAL) ONE (07:54)
[2016-10-23] MEDS ORDERED: Midazolam* 1 MG/ML 2 ML VIAL (2 MG) ONE (07:59)
[2016-10-23] MEDS ORDERED: Propofol* 10 MG/ML 20 ML BTL IV PUSH ONE (09:16)
[2016-10-23 10:49] VITALS: BP 139/52
== END 2016-10-23 10:48 | disposition home or self-care (01) ==
LOC: OR 06:05
PROVIDERS: ATTEND Plastic Surgery
DX: C44.219 Basal cell carcinoma of skin of left ear and external auricular canal (principal); I48.91 Unspecified atrial fibrillation; I10 Essential (primary) hypertension; I25.10 Atherosclerotic heart disease of native coronary artery without angina pectoris; Z79.01 Long term (current) use of anticoagulants; D50.9 Iron deficiency anemia, unspecified
CPT/HCPCS: 88305; 88331; 88332; A9270-GY; J0690; J2250; J2704; J3010

== ENCOUNTER 2018-12-09 13:10 | Observation (INO) | payer MEDICARE, OTHER ==
--- OUTSIDE RECORDS SUMMARY | 2018-12-09 14:26 | XMS REPORT | Continuity of Care Document ---
:1930 External Reference #:[id number] Author Name Conner Esquivel M.D. (transmitted by agent of provider Sindi Miramontes) Address [address] [place] [address] Care Team Providers Name Role Phone Mimi Su MD - Internal Medicine Care Team Information Cash Applications Representative Problems Active Problems Provider Date Essential hypertension Frances Monk NP Onset: 11/12/2016 Type 2 diabetes mellitus Hernan Snider M.D.,FACP Onset: 11/13/2017 Note: diet controlled Chronic atrial fibrillation Hernan Snider M.D.,FACP Onset: 11/13/2017 Chronic kidney disease stage 2 Hernan Snider M.D.,FACP Onset: 11/13/2017 Social History Type Date Description Comments Sex Unknown Tobacco Use Start: Unknown End: Former Cigarette Smoker Pt denies smoking Unknown cigar, pipe, e-cigarettes, or using chewing tobacco Smoking Status Reviewed: 10/17/18 Former Cigarette Smoker Pt denies smoking cigar, pipe, e-cigarettes, or using chewing tobacco ETOH Use 04/16/2018 Denies alcohol use Tobacco Use Start: Unknown End: Patient is a former smoked for a few Unknown smoker years in the early 70s Recreational Drug Use Denies Drug Use Exercise Type/Frequency Does not exercise Exercise Type/Frequency Does housework daily starting exercise class Allergies, Adverse Reactions, Alerts Active Allergies Reaction Severity Comments Date Sulfa Antibiotics Urticaria 12/17/2014 Norvasc 04/03/2017 Inactive Allergies NKDA 11/27/2012 Medications Active Medications SIG Qnty Indications Ordering Date Provider Four Wheeled Walker With 1units Mimi Su MD 08/26/2018 Seat Walker use as needed 1units Mimi Su MD 08/15/2018 Misc Hydralazine HCL Take 1 Tablet 90tabs I10 Susan Underwood, 07/11/2018 10mg Tablets By Mouth Two N.P. Times A Day( Med change 08/[address] Su) Omeprazole 1 by mouth 90caps I48.0 Frances 06/17/[address] every other INNA Monk daily Vitamin C 1 by mouth Unknown 500mg Capsules every day Vitamin D High Potency 1 by mouth Unknown 1000Unit every day Capsules Xarelto 1 by mouth 90tabs Frances 15mg Tablets every day INNA Monk Spironolactone 1 by mouth 90tabs Hernan Allen 25mg Tablets every day Corrina Snider,FACP Losartan Potassium Take 1 Tablet 180tabs Mimi Su MD 50mg Tablets By Mouth Twice A Day Hydrochlorothiazide take 1 capsule 180caps I48.0 Mimi Su MD 12.5mg twice a day Capsules Multi Adult Gummies 1 by mouth Unknown Chewtabs every day Probiotic 1 po daily Unknown Medications Administered in Office Medication SIG Qnty Indications Ordering Provider Date Inj, Regadenoson, 0.1 MG Conner Esquivel M.D. 11/12/2012 Injection Technetium TC 99M Tetrofosmin, Conner Esquivel M.D. 11/12/2012 Per Unit Dose Up To 40 Millicuries Injection Immunizations CPT Code Status Date Vaccine Reaction Lot # [id number] Given 11/12/2016 Pneumococcal Conjugate no immediate reaction, [id number] Vaccine 13 Valent For pt tolerated well Intramuscular Use [id number] Given 01/08/2008 Pneumonia Vaccine Vital Signs Date Vital Result Comment 10/17/2018 9:20am Height 60 inches 5'0" Weight 153.00 lb with shoes Heart Rate 70 /min BP Systolic 140 mmHg Lue reg cuff BP Diastolic 72 mmHg Lue reg cuff BP Systolic Sitting 148 mmHg Rue reg cuff BP Diastolic Sitting 76 mmHg Rue reg cuff BP Systolic Standing 144 mmHg Lue reg cuff BP Diastolic Standing 70 mmHg Lue reg cuff Respiratory Rate 16 /min BMI (Body Mass Index) 29.9 kg/m2 Ejection Fraction 55-60% date 07/18/18 ECHO 09/19/2018 2:00pm Height 60 inches 5'0" Weight 154.00 lb Heart Rate 74 /min BP Systolic Sitting 146 mmHg BP Diastolic Sitting 67 mmHg Body Temperature 97.1 F O2 % BldC Oximetry 98 % BMI (Body Mass Index) 30.1 kg/m2 Results Test Date Facility Test Result H/L Range Note Laboratory test 08/08/2018 [facility] Magnesium 1.8 mg/dL Low 1.9-2.7 [address] [place] [address] [phone] Basic Metabolic 08/08/2018 [facility] Sodium 137 mmol/L Normal 135-145 Panel [address] [place] [address] [phone] Potassium 4.9 mmol/L Normal 3.5-5.0 Chloride 105 mmol/L Normal 101-111 Co2 Carbon Dioxide 25 mmol/L Normal 22-32 Anion Gap 7 mmol/L Normal 2-11 Glucose 130 mg/dL High 70-100 Blood Urea Nitrogen 31 mg/dL High 6-24 Creatinine 1.49 mg/dL High 0.51-0.95 BUN/Creatinine Ratio 20.8 High 8-20 Calcium 10.1 mg/dL Normal 8.6-10.3 Egfr Non- 33.2 >60 Egfr 40.1 >60 1 Basic Metabolic 07/11/2018 [facility] Sodium 140 mmol/L Normal 135-145 [address] [place] [address] [phone] Potassium 4.0 mmol/L Normal 3.5-5.0 Chloride 106 mmol/L Normal 101-111 Co2 Carbon Dioxide 26 mmol/L Normal 22-32 Anion Gap 8 mmol/L Normal 2-11 Glucose 147 mg/dL High 70-100 Blood Urea Nitrogen 27 mg/dL High 6-24 Creatinine 1.34 mg/dL High 0.51-0.95 BUN/Creatinine Ratio 20.1 High 8-20 Calcium 9.8 mg/dL Normal 8.6-10.3 Egfr Non- 37.5 >60 Egfr 45.4 >60 2 Comp Metabolic 06/03/2018 [facility] Sodium 139 mmol/L Normal 135-145 Panel [address] [place] [address] [phone] Potassium 5.0 mmol/L Normal 3.5-5.0 Chloride 104 mmol/L Normal 101-111 Co2 Carbon Dioxide 28 mmol/L Normal 22-32 Anion Gap 7 mmol/L Normal 2-11 Glucose 134 mg/dL High 70-100 Blood Urea Nitrogen 25 mg/dL High 6-24 Creatinine 1.40 mg/dL High 0.51-0.95 BUN/Creatinine Ratio 17.9 Normal 8-20 Calcium 9.9 mg/dL Normal 8.6-10.3 Total Protein 6.9 g/dL Normal 6.4-8.9 Albumin 4.2 g/dL Normal 3.2-5.2 Globulin 2.7 g/dL Normal 2-4 Albumin/Globulin Ratio 1.6 Normal 1-3 Total Bilirubin 0.50 mg/dL Normal 0.2-1.0 Alkaline Phosphatase 68 U/L Normal 34-104 Alt 13 U/L Normal 7-52 Ast 15 U/L Normal 13-39 Egfr Non- 35.7 >60 Egfr 43.1 >60 3 Lipid Profile 06/03/2018 [facility] Triglycerides 128 mg/dL 4 (Trig/Chol/HDL) [address] [place] [address] [phone] Cholesterol 132 mg/dL 5 HDL Cholesterol 41.5 mg/dL 6 LDL Cholesterol 65 mg/dL 7 Laboratory test finding 06/03/2018 [facility] In House Hemoglobin A1c 6.5% 5-7 1 Because ethnic data is not always readily available, this report includes an eGFR for both -Americans and non- Americans. The National Kidney Disease Education Program (NKDEP) does not endorse the use of the MDRD equation for patients that are not between the ages of 18 and 70, are , have extremes of body size, muscle mass, or nutritional status, or are non- or non-. According to the National Kidney Foundation, irrespective of diagnosis, the stage of the disease is based on the level of kidney function: Stage Description GFR(mL/min/1.73 m(2)) 1 Kidney damage with normal or decreased GFR 90 2 Kidney damage with mild decrease in GFR 60-89 3 Moderate decrease in GFR 30-59 4 Severe decrease in GFR 15-29 5 Kidney failure <15 (or dialysis) 2 Because ethnic data is not always readily available, this report includes an eGFR for both -Americans and non- Americans. The National Kidney Disease Education Program (NKDEP) does not endorse the use of the MDRD equation for patients that are not between the ages of 18 and 70, are , have extremes of body size, muscle mass, or nutritional status, or are non- or non-. According to the National Kidney Foundation, irrespective of diagnosis, the stage of the disease is based on the level of kidney function: Stage Description GFR(mL/min/1.73 m(2)) 1 Kidney damage with normal or decreased GFR 90 2 Kidney damage with mild decrease in GFR 60-89 3 Moderate decrease in GFR 30-59 4 Severe decrease in GFR 15-29 5 Kidney failure <15 (or dialysis) 3 Because ethnic data is not always readily available, this report includes an eGFR for both -Americans and non- Americans. The National Kidney Disease Education Program (NKDEP) does not endorse the use of the MDRD equation for patients that are not between the ages of 18 and 70, are , have extremes of body size, muscle mass, or nutritional status, or are non- or non-. According to the National Kidney Foundation, irrespective of diagnosis, the stage of the disease is based on the level of kidney function: Stage Description GFR(mL/min/1.73 m(2)) 1 Kidney damage with normal or decreased GFR 90 2 Kidney damage with mild decrease in GFR 60-89 3 Moderate decrease in GFR 30-59 4 Severe decrease in GFR 15-29 5 Kidney failure <15 (or dialysis) 4 Desirable: <150 Borderline High: 150-199 High: 200-499 Very High: >500 5 Desirable: <200 Borderline High: 200-239 High: >239 6 Low: <40 Desirable: 40-60 High: >60 7 Desirable: <100 Near Optimal: 100-129 Borderline High: 130-159 High: 160-189 Very High: >189 Procedures Date Code Description Status 07/23/2018 11800 Holter Monitor Review (24 hr)dr lock & jean-paul only Completed 07/18/2018 32808 ECHO Transthoracic, Real-Time 2D With Doppler And Color Completed Flow 07/18/2018 17535 ECHO Transthoracic, Real-Time 2D With Doppler And Color Completed Flow 07/18/2018 16309 ECG Monitor/Recording W/Visual Superimposition Scanning Completed 07/11/2018 16530 EKG Tracing & Interpretation Completed 06/10/2018 [id number] Mammogram Completed 06/14/2016 [id number] Mammogram Completed 02/26/2012 [id number] Colonoscopy Completed Medical Devices Description No Information Available Encounters Type Date Location Provider Dx Diagnosis Office Visit 10/17/2018 [facility] Conner Allen I10 Essential ( primary) 10:30a Of Ifeanyi Esquivel M.D. hypertension I48.2 Chronic atrial fibrillation R94.31 Abnormal electrocardiogram [ECG] [EKG] Office Visit 09/19/2018 2:00p [facility] Internal Mimi Georges, I10 Essential ( primary) Medicine - [facility] hypertension G47.62 Sleep related leg cramps Office Visit 08/08/2018 10:00a [facility] Internal Mimi Georges, I10 Essential ( primary) Medicine - [facility] hypertension G47.62 Sleep related leg cramps Office Visit 07/11/2018 9:00a [facility] Susan S. I48.2 Chronic atrial Of Corporate Librarian Foster, N.P. fibrillation I12.9 Hypertensive chronic kidney disease w stg 1-4/unsp chr kdny N18.9 Chronic kidney disease, unspecified R06.00 Dyspnea, unspecified Office Visit 07/07/2018 2:40p [facility] Internal Mimi Georges, I10 Essential ( primary) Medicine - [facility] hypertension Office Visit 07/03/2018 10:20a [facility] Internal Mimi Georges, I10 Essential ( primary) Medicine - [facility] hypertension M54.2 Cervicalgia I48.2 Chronic atrial fibrillation Office Visit 06/03/2018 2:00p [facility] Internal Mimi Georges, E11.9 Type 2 diabetes Medicine - mellitus without [facility] complications I10 Essential (primary) hypertension I48.2 Chronic atrial fibrillation M54.2 Cervicalgia Assessments Date Code Description Provider 10/17/2018 I10 Essential (primary) hypertension Conner Esquivel M.D. 10/17/2018 I48.2 Chronic atrial fibrillation Conner Esquivel M.D. 10/17/2018 R94.31 Abnormal electrocardiogram [ECG] [EKG] Conner Esquivel M.D. 09/19/2018 I10 Essential (primary) hypertension Mimi Su MD 09/19/2018 G47.62 Sleep related leg cramps Mimi Su MD 08/08/2018 I10 Essential (primary) hypertension Mimi Su MD 08/08/2018 G47.62 Sleep related leg cramps Mimi Su MD 07/23/2018 I48.91 Unspecified atrial fibrillation Conner Esquivel M.D. 07/23/2018 I48.2 Chronic atrial fibrillation Conner Esquivel M.D. 07/18/2018 R06.00 Dyspnea, unspecified Conner Esquivel M.D. 07/18/2018 I48.91 Unspecified atrial fibrillation Nurse Visit IC 07/18/2018 I48.2 Chronic atrial fibrillation Nurse Visit IC 07/18/2018 R06.00 Dyspnea, unspecified Ica ECHO Schedule 07/11/2018 I48.2 Chronic atrial fibrillation Susan Underwood, N.P. 07/11/2018 R94.31 Abnormal electrocardiogram [ECG] [EKG] Conner Esquivel M.D. 07/11/2018 I12.9 Hypertensive chronic kidney disease with Susan S. Kj, N.P. stage 1 through sta 07/11/2018 N18.9 Chronic kidney disease, unspecified Susan Underwood, N.P. 07/11/2018 R06.00 Dyspnea, unspecified Susan Underwood, N.P. 07/07/2018 I10 Essential (primary) hypertension Mimi Su MD 07/03/2018 I10 Essential (primary) hypertension Mimi Su MD 07/03/2018 M54.2 Cervicalgia Mimi Su MD 07/03/2018 I48.2 Chronic atrial fibrillation Mimi Su MD 06/03/2018 E11.9 Type 2 diabetes mellitus without Mimi Su MD complications 06/03/2018 I10 Essential (primary) hypertension Mimi Su MD 06/03/2018 I48.2 Chronic atrial fibrillation Mimi Su MD 06/03/2018 M54.2 Cervicalgia Mimi Su MD Plan of Treatment Future Appointment(s):01/15/2019 10:00 am - Mimi Su MD at [facility] Internal Medicine - [facility]08 - Conner Esquivel M.D.I10 Essential (primary) hypertensionFollow up:6 tajpqyH45.2 Chronic atrial ewiwdlwmabvdO66.31 Abnormal electrocardiogram [ECG] [EKG]Recommendations:Consider seeing Dr Olson for shortness of breath Functional Status Description No Information Available Mental Status Description No Information Available Referrals Description No Information Available
[2018-12-09] MEDS ORDERED: HYDROcodone/ACETAMIN 5-325 MG* 1 TAB PO ONE (14:39)
[2018-12-09] MEDS ORDERED: Lidocaine PATCH 5%* 1 PATCH TRANSDERM ONE (14:41)
--- NOTE | 2018-12-09 14:41 | ED ---
Back Pain - HPI Summary HPI Summary: Patient is an 88-year-old female who presents emergency department for back pain after injury that occurred 5 days ago. Patient resides at home by herself. Patient states on Saturday she had her foot on the bathtub and bent over to clip her toenails when she developed severe low back pain. Has been taking Tylenol without improvement of pain. Pain occasionally radiates into right leg with occasional tingling. She denies numbness, weakness, urinary retention or incontinence. Denies fever, chest pain, shortness of breath, abdominal pain, dysuria. Symptoms are mild in severity. Movement makes symptoms worse. Nothing makes symptoms better. Patient notes she's been having a hard time getting around her apartment and notes she has not been eating last few days because she cannot move. - History of Current Complaint Chief Complaint: EDBackInjuryPain Stated Complaint: BACK PAIN PER PT Time Seen by Provider: 12/09/18 14:22 Hx Obtained From: Patient Pain Intensity: 10 - Allergies/Home Medications Allergies/Adverse Reactions: Allergies Allergy/AdvReac Type Severity Reaction Status Date / Time MS Amlodipine [Amlodipine] Allergy Severe Swelling Verified 12/09/18 14:21 MS Meperidine [Meperidine] Allergy Unknown Verified 12/09/18 14:21 Reaction Details MS Sulfa Antibiotics Allergy Unknown Verified 12/09/18 14:21 [Sulfa Antibiotics] Reaction Details MS Codeine [Codeine] AdvReac Stomach Verified 12/09/18 14:21 Cramps ADHESIVE Allergy Intermediate Blisters Uncoded 12/09/18 14:21 Home Medications: Home Medications Hydralazine HCl 10 mg PO BID 12/09/18 [History Confirmed 12/09/18] Losartan TAB* [Cozaar TAB*] 50 mg PO DAILY 12/09/18 [History Confirmed 12/09/18] Multivitamin [One-Daily Multi-Vitamin] 1 each PO DAILY 12/09/18 [History Confirmed 12/09/18] PMH/Surg Hx/FS Hx/Imm Hx Previously Healthy: Yes Endocrine/Hematology History: Reports: Hx Anticoagulant Therapy - Xeralto, Hx Anemia - IRON DEFICIENT Denies: Hx Diabetes Cardiovascular History: Reports: Hx Atrial Fibrillation, Hx Congestive Heart Failure, Hx Hypertension - ON MEDS PT. STATES CONTROLLED, Other Cardiovascular Problems/Disorders - Cardioverted 06/29/2015 Respiratory History: Reports: Other Respiratory Problems/Disorders - 05/02/16 ACTIVE BRONCHITIS GI History: Reports: Hx Gastroesophageal Reflux Disease - PT. STATES CONTROLLED WITH MEDS, Other GI Disorders - CONSTIPATION History: Reports: Other Problems/Disorders - CKD III Musculoskeletal History: Reports: Hx Arthritis - both feet, knees, legs, Hx Back Problems - ruptured disc with repair Sensory History: Reports: Hx Cataracts - BILAT, Hx Contacts or Glasses, Hx Hearing Aid, Hx Hearing Problem Opthamlomology History: Reports: Hx Cataracts - BILAT, Hx Contacts or Glasses Neurological History: Reports: Hx Transient Ischemic Attacks (TIA) - 2010; had right hand weakness and occasional tremors - Surgical History Surgery Procedure, Year, and Place: herniated disc repair 1962,OPEN choleystectomy 1966, rt knee arthroplastyX3 1999, 2006, 2006,BLADDER [id number], APPENDECTOMY AT AGE 14 YS. RIGHT BX BREAST 2007 NON CANCEROUS. BILAT CATARACT REMOVED Hx Anesthesia Reactions: No - Immunization History Date of Tetanus Vaccine: none Date of Influenza Vaccine: none Infectious Disease History: No Infectious Disease History: Denies: Hx Clostridium Difficile, Hx Hepatitis, Hx Human Immunodeficiency Virus (HIV), Hx of Known/Suspected MRSA, Hx Shingles, Hx Tuberculosis, Hx Known/ Suspected VRE, Hx Known/Suspected VRSA, History Other Infectious Disease, Traveled Outside the [place] in Last 30 Days - Family History Known Family History: Positive: None, Other - breast CA, Non-Contributory - Social History Occupation: Retired Lives: Alone Alcohol Use: None Hx Substance Use: No Substance Use Type: Reports: None Hx Tobacco Use: Yes Smoking Status (MU): Former Smoker Length of Time of Smoking/Using Tobacco: QUIT IN THE 1969's Have You Smoked in the Last Year: No Review of Systems Constitutional: Negative Negative: Fever Cardiovascular: Negative Negative: Palpitations, Chest Pain Respiratory: Negative Negative: Shortness Of Breath, Cough Gastrointestinal: Negative Negative: Abdominal Pain, Vomiting, Diarrhea Genitourinary: Negative Negative: dysuria Positive: Other - low back pain Skin: Negative Neurological: Negative Negative: Weakness, Paresthesia, Numbness All Other Systems Reviewed And Are Negative: Yes Physical Exam Triage Information Reviewed: Yes Vital Signs On Initial Exam: Initial Vitals Temp Pulse Resp BP Pulse Ox 98.2 F 117 18 208/98 99 12/09/18 13:12 12/09/18 13:12 12/09/18 13:12 12/09/18 13:12 12/09/18 13:12 Vital Signs Reviewed: Yes Appearance: Positive: Well-Appearing - Pt. sitting in chair in NAD. Significant pain moving from chair to bed. Son present. Skin: Positive: Warm, Dry Head/Face: Positive: Normal Head/Face Inspection Eyes: Positive: Normal, EOMI Neck: Positive: Supple Respiratory/Lung Sounds: Positive: Clear to Auscultation, Breath Sounds Present Cardiovascular: Positive: Normal, RRR Musculoskeletal: Positive: Other Neurological: Positive: Normal, CN Intact II-III, Facial Symmetry - 5/5 strength in bilateral LEs. Midline lumbar tenderness. Psychiatric: Positive: Affect/Mood Appropriate Procedures - Sedation Patient Received Moderate/Deep Sedation with Procedure: No Diagnostics - Vital Signs Vital Signs Temp Pulse Resp BP Pulse Ox 12/09/18 14:33 77 167/89 100 12/09/18 13:12 98.2 F 117 18 208/98 99 - Laboratory Result Diagrams: 12/09/18 17:40 12/09/18 17:40 Lab Statement: Any lab studies that have been ordered have been reviewed, and results considered in the medical decision making process. Back Pain Course/Dx - Course Course Of Treatment: Patient presenting after mechanical back injury. She was given a dose of Lortab given a lidocaine patch was placed. She has no neurological deficits. CT scan shows compression fracture L3, reading per radiology. On reexamination patient has had no improvement with her pain. Attempted to ambulate patient was barely able to get out of bed. Concern for patient safety at home and she herself and has not been able to take care of herself. Hospitalist consulted for admission. Case discussed with Dr. Sinha who will accept pt. - Diagnoses Differential Diagnosis/HQI/PQRI: Positive: Arthritis, Fracture, Herniated Disc, Strain, Sprain Provider Diagnoses: Lumbar compression fracture Discharge ED - Sign-Out/Discharge Documenting (check all that apply): Patient Departure - Discharge Plan Condition: Stable Disposition: ADMITTED TO [facility] Referrals: Mimi Su MD [Primary Care Provider] - - Billing Disposition and Condition Condition: STABLE Disposition: Admitted to [facility]
[2018-12-09] MEDS ORDERED: Lidocaine PATCH 5%* 1 PATCH TRANSDERM SCH (15:00)
[2018-12-09 17:48] LABS: ABS Basophils 0.1 10^3/ul (0-0.2); ABS Lymphocytes 2.2 10^3/ul (1.0-4.8); ABS Neutrophils 9.7 10^3/ul (1.5-7.7); Eosinophil % 0.3 %; Hematocrit 40 % (35-47); Hemoglobin 13.1 g/dL (12.0-16.0); Lymphocyte % 17.3 %; Mean Corpuscular HGB Conc 33 g/dL (31-36); Mean Corpuscular Hemoglobin 30 pg (27-31); Mean Corpuscular Volume 91 fL (80-97); Mean Platelet Volume 8.5 fL (7.4-10.4); Nucleated Red Blood Cells % 0.1; Platelet Count 258 10^3/uL (150-450); Red Blood Count 4.32 10^6 /uL (3.70-4.87); Red Cell Distribution Width 14 % (10-15)
[2018-12-09 18:06] LABS: Albumin 4.2 g/dL (3.2-5.2); Albumin/Globulin Ratio 1.2 (1-3); BUN/Creatinine Ratio 19.3 (8-20); Calcium 9.9 mg/dL (8.6-10.3); EGFR Non-African American 35.6 (>60); Globulin 3.4 g/dL (2-4); Potassium 4.7 mmol/L (3.5-5.0); Total Bilirubin 0.6 mg/dL (0.2-1.0); Total Protein 7.6 g/dL (6.4-8.9)
[2018-12-09] MEDS ORDERED: oxyCODONE/Acetamin 5/325 MG* TAB PO PRN (18:59)
[2018-12-09] MEDS ORDERED: Ondansetron INJ* 2 MG/ML VIAL IV PRN (19:13)
[2018-12-09 19:20] LABS: Magnesium 1.7 mg/dL (1.9-2.7)
[2018-12-09] MEDS ORDERED: oxyCODONE TAB* 5 MG TAB PO PRN (19:43)
--- NOTE | 2018-12-09 20:37 | HP ---
ADMISSION HISTORY AND PHYSICAL: DATE OF ADMISSION: 12/09/18 PRIMARY CARE PHYSICIAN: Dr. Su. PROVIDER: Torri Cortes NP. ATTENDING PHYSICIAN: Dr. Sinha.* (DICTATED BY TORRI CORTES NP) CHIEF COMPLAINT: Fall with lower back pain. HISTORY OF PRESENT ILLNESS: This is an 88-year-old female with a past medical history significant for AFib, hypertension, and osteopenia who on Saturday had been leaning over with her leg up on the tub, cutting her toenails, and all of a sudden felt pain in her lower back. Denied any numbness, tingling, and weakness. Came to the emergency room today for pain control. Stated that the pain was 10/10 when moving and about 7/10 at rest and was inhibiting her ability to walk around her home as freely as she would like. The hospitalists were asked to evaluate the patient for admission. In the ED, the patient received 1 hydrocodone, which did not alleviate her pain adequately. Current pain was 7/10. PAST MEDICAL HISTORY: AFib, CVA, hypertension, arthritis, osteopenia, macular degeneration, bilateral hearing aids, basal cell carcinoma, chronic kidney disease stage 3. PAST SURGICAL HISTORY: Right patellar repair, lumbar disk fusion, appendectomy , right breast biopsy, cholecystectomy, and hysterectomy. HOME MEDICATIONS: 1. Multivitamin 1 tab p.o. daily. 2. Rivaroxaban/Xarelto 15 mg p.o. q.p.m. 3. Polyethylene glycol 17 g p.o. q.12 hours. 4. Cholecalciferol 1000 units p.o. q.a.m. 5. Ascorbic acid 500 mg p.o. q.a.m. 6. Hydrochlorothiazide 12.5 mg p.o. b.i.d. 7. Spironolactone 25 mg p.o. q.a.m. 8. Losartan 50 mg p.o. daily. 9. Hydralazine 10 mg p.o. b.i.d. 10. Omeprazole 20 mg p.o. q.a.m. ALLERGIES: AMLODIPINE, MEPERIDINE, SULFA, CODEINE, and ADHESIVE. FAMILY HISTORY: Both parents, sisters, and brothers all had heart disease. Two brothers had quadruple bypasses. Grandmother and mother both had MIs and her sister had stents and dementia. SOCIAL HISTORY: The patient was a light smoker, quit in the early 1970s. Denies any alcohol or recreational substance use. 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 Is . Has 3 children and [facility]. REVIEW OF SYSTEMS: An 11-point system review was performed. It was positive for occasional shortness of breath when she goes into AFib, which she states she sometimes is able to tell when that happens, but not always. Also positive for constipation. She has not had a bowel movement since late Saturday/early Saturday morning. Normally, she can go up to a week without having a bowel movement. Currently, denies feeling any constipation. Also positive for leg cramping at night. Denies any chest pain, nausea, vomiting, cough, or issues with urination and no recent unexplained weight loss. PHYSICAL EXAMINATION CONSTITUTIONAL: This is an overweight older woman, seen sitting up in chair, no acute distress noted. VITAL SIGNS: 98.2 Fahrenheit temp, 77 pulse, 18 respirations, 100% oxygen on room air, and 167/89 blood pressure. HEENT: Eyes: Conjunctivae pink and moist. PERRLA. EOMs intact. ENT: Oropharynx clear. Mucous membranes moist. LYMPHATICS: No cervical lymphadenopathy noted. RESPIRATORY: No accessory muscle use. Lung sounds clear throughout bilaterally on room air. CARDIAC: S1, S2 present. Heart rate regular. No murmurs, gallops, or rubs appreciated. No lower extremity edema, +2 pedal pulses. ABDOMEN: Soft, nontender, nondistended. Hypoactive bowel sounds x4. MUSCULOSKELETAL: No clubbing or cyanosis. Able to move the bilateral lower extremities. No abnormalities appreciated. NEUROLOGIC: Moves all extremities. Sensation intact to light touch. No focal deficits appreciated. PSYCH: Alert and oriented x3. No anxiety or depression. Thought content organized. SKIN: No rashes or open areas noted. DIAGNOSTIC STUDIES/LAB DATA: Pertinent Lab Data: White blood cell count 13.0, absolute neutrophils 9.7, absolute monocytes 1.0. BUN 27, creatinine 1.4, glucose 122. Diagnostics: CT of the lumbar spine showed osteopenia with minimal loss of vertebral body height at L3 consistent with compression fracture without osseous retropulsion, degenerative disk disease, and osteoarthritis as described above. ASSESSMENT AND PLAN: My impression is that this is an 88-year-old female with a past medical history significant for atrial fibrillation, cerebrovascular accident, and hypertension who was admitted on 12/09/18 for an L3 compression fracture. Plan: 1. L3 compression fracture. Physical Therapy and Occupational Therapy assistance with ambulation as needed. Regular diet. Percocet for pain control. 2. Hypertension. The patient may continue hydrochlorothiazide, spironolactone , losartan, and hydralazine. 3. Atrial fibrillation. The patient is currently not on any rate controlled medications, though continue Xarelto. 4. Chronic kidney disease. Continue losartan. 5. Constipation. Continue MiraLAX. Initiated stool softeners b.i.d. 6. Vitamin D deficiency. Continue vitamin D supplement. 7. Gastroesophageal reflux disease. Continue omeprazole. 8. Code status is full code. 9. DVT prophylaxis. SCDs and subcu heparin. TIME SPENT: Time spent on this patient is about 60 minutes with more than half of it spent face to face. DISPOSITION: Admit OBV to 4N. CONDITION: [place] was discussed with my attending and they agree. TORRI CORTES, [employer]BAC[employer] HANGER [id number]/[facility] #: [id number] DIXIE
[2018-12-09] MEDS ORDERED: Metoprolol Tartrate IV* 1 MG/ML 5 ML VIAL IV PRN (21:36)
[2018-12-09] MEDS ORDERED: Magnesium Sulfate 2 GM IV* 2 GM/50 ML BAG IVPB ONE (22:00)
[2018-12-09 23:12] LABS: Urine Appearance Cloudy; Urine Bacteria Absent (Absent); Urine Bilirubin Negative (Negative); Urine Blood 1+ (Negative); Urine Color Straw; Urine Glucose Negative (Negative); Urine Ketones Negative (Negative); Urine Nitrite Negative (Negative); Urine Protein Negative (Negative); Urine Red Blood Cell 1+(3-5/hpf) (Absent); Urine Specific Gravity 1.005 (1.010-1.030); Urine Squamous Epithelial Cell Present (Absent); Urine Urobilinogen Negative (Negative); Urine White Blood Cell 2+(11-20/hpf) (Absent)
[2018-12-09] MEDS: Acetaminophen TAB* 325 MG PO SCH (23:27)
[2018-12-09] MEDS: Polyethylene Glycol 3350* 17 GM PACKET PO SCH (23:28)
[2018-12-09] MEDS: Docusate CAP* 100 MG PO SCH (23:28)
[2018-12-09] MEDS: Hydrochlorothiazide TAB* 25 MG PO SCH (23:28)
[2018-12-09] MEDS: hydrALAZINE TAB* 10 MG PO SCH (23:28)
[2018-12-10] MEDS ORDERED: Lidocaine Patch REMOVE* 1 NOTE MISC PATCH OFF ONE (03:00)
[2018-12-10 06:35] LABS: ABS Basophils 0.1 10^3/ul (0-0.2); ABS Eosinophils 0.1 10^3/ul (0-0.6); ABS Lymphocytes 1.7 10^3/ul (1.0-4.8); ABS Monocytes 0.9 10^3/ul (0-0.8); ABS Neutrophils 6.4 10^3/ul (1.5-7.7); Eosinophil % 1.5 %; Hematocrit 37 % (35-47); Hemoglobin 12.5 g/dL (12.0-16.0); Lymphocyte % 18.8 %; Mean Corpuscular HGB Conc 34 g/dL (31-36); Mean Corpuscular Hemoglobin 31 pg (27-31); Mean Corpuscular Volume 91 fL (80-97); Mean Platelet Volume 8.6 fL (7.4-10.4); Nucleated Red Blood Cells % 0.1; Platelet Count 234 10^3/uL (150-450); Red Cell Distribution Width 14 % (10-15); White Blood Count 9.2 10^3/uL (3.5-10.8)
[2018-12-10] MEDS: Acetaminophen TAB* 325 MG PO SCH ×3 (08:54→21:30)
[2018-12-10] MEDS: Cholecalciferol TAB* 1000 UNITS PO SCH (08:54)
[2018-12-10] MEDS: Hydrochlorothiazide TAB* 25 MG PO SCH ×2 (08:55→21:31)
[2018-12-10] MEDS: Multivitamins/Minerals TAB PO SCH (08:55)
[2018-12-10] MEDS: Losartan TAB* 25 MG PO SCH (08:55)
[2018-12-10] MEDS: Spironolactone TAB* 25 MG PO SCH (08:55)
[2018-12-10] MEDS: Docusate CAP* 100 MG PO SCH ×2 (08:56→21:31)
[2018-12-10] MEDS: Ascorbic Acid TAB* 500 MG PO SCH (08:56)
[2018-12-10] MEDS: hydrALAZINE TAB* 10 MG PO SCH ×2 (08:56→21:32)
[2018-12-10] MEDS: Pantoprazole TAB * 40 MG TAB PO SCH (08:56)
[2018-12-10] MEDS: Polyethylene Glycol 3350* 17 GM PACKET PO SCH ×2 (08:56→21:30)
--- NOTE | 2018-12-10 11:05 | PN ---
Subjective Date of Service: 12/10/18 Interval History: Pt states she was bending over tub clipping toenails of R foot, when she felt sudden pain in the R hip and low back. There was no fall, head or neck injury, although the patient reports OA in cervical spine. Pain persisted, and she came to the ER where she was admitted after having found an L3 compression fracture. She has h/o ruptured disc is 1963 where she reportedly had a spinal fusion with bone graft. Since, she has had infrequent back pain that she describes as "my back went out" for 3-4 days at a time and resolved; last episode was 6 years ago. Today, she continues to have low back pain with any movement; pain is relieved with sitting down, stillness. No BM in approximately 4 days, which she states is not unusual for her. No other complaints today. Objective Active Medications: Acetaminophen (Tylenol Tab*) 975 mg PO TID BLAIR Ascorbic Acid (Vitamin C Tab*) 500 mg PO DAILY BLAIR Cholecalciferol (Vitamin D Tab*) 1,000 units PO QAM BLAIR Docusate Sodium (Colace Cap*) 100 mg PO BID BLAIR Hydralazine HCl (Apresoline Tab*) 10 mg PO BID BLAIR Hydrochlorothiazide (Hydrodiuril Tab*) 12.5 mg PO BID BLAIR Losartan Potassium (Cozaar Tab*) 50 mg PO DAILY BLAIR Metoprolol Tartrate (Lopressor Iv*) 5 mg IV Q5M PRN Multivitamins/Minerals (Theragran/Minerals Tab*) 1 tab PO DAILY BLAIR Ondansetron HCl (Zofran Inj*) 4 mg IV Q4H PRN Oxycodone HCl (Roxycodone Tab*) 5 mg PO Q4H PRN Pantoprazole Sodium (Protonix Tab*) 40 mg PO QAM [facility] Polyethylene Glycol/Electrolytes (Miralax*) 17 gm PO Q12HR BLAIR Rivaroxaban (Xarelto(*)) 15 mg PO QPM BLAIR Spironolactone (Aldactone Tab*) 25 mg PO QAM BLAIR Vital Signs: Temp Pulse Resp BP Pulse Ox 97.5 F 67 17 144/61 97 12/10/18 07:00 12/10/18 07:00 12/10/18 08:00 12/10/18 07:00 12/10/18 07:00 Oxygen Devices in Use Now: None Appearance: Pt is pleasant elderly white woman who is sitting up in chir with LE at floor. She is pleasant, cooperative, in no acute distress. Eyes: No Scleral Icterus, PERRLA Ears/Nose/Mouth/Throat: NL Teeth, Lips, Gums, Clear Oropharnyx, Mucous Membranes Moist Neck: NL Appearance and Movements; NL JVP, Trachea Midline Respiratory: Symmetrical Chest Expansion and Respiratory Effort, Clear to Auscultation Cardiovascular: NL Sounds; No Murmurs; No JVD, No Edema, - - Irregular Abdominal: NL Sounds; No Tenderness; No Distention, No Hepatosplenomegaly Extremities: No Edema, No Clubbing, Cyanosis Neurological: Alert and Oriented x 3, NL Muscle Strength and Tone, - - CN II- XII grossly intact. Cervical spine tender to palpation with full ROM; nontender thoracic; nontender lumbar spine that is painful with movement. Result Diagrams: 12/10/18 06:16 12/09/18 17:40 Assess/Plan/Problems-Billing Assessment: 88 PMHx AF, CVA, HTN, CKD III presents with sudden low back pain and found to have possible compression fracture at L3. - Patient Problems (1) Compression fracture of L3 vertebra Comment: -CT with findigns suggestive of compression fracture at L3 -Dr. Chester consulted, notified -Continue pain management plus bowel regimen -Bedrest for now -MRI lumbar spine (ordered) (2) HTN (hypertension) Comment: -SBP 140's -Continue home medications hydralazine, HCTZ, losartan, spironolactone (3) Afib Comment: -Tele: AF, rate controlled -No home rate control medications -Continue Xarelto, renal dose (4) GERD (gastroesophageal reflux disease) Comment: -Pantoprazole (5) CKD (chronic kidney disease), stage III Comment: -Cr at baseline (6) DVT prophylaxis Comment: -Continue home xarelto (7) Full code status Status and Disposition: Observation. Discharge when stable.
[2018-12-10] MEDS: Rivaroxaban TAB(*) 15 MG PO SCH (18:04)
[2018-12-11] MEDS: Polyethylene Glycol 3350* 17 GM PACKET PO SCH ×2 (09:17→21:00)
[2018-12-11] MEDS: Hydrochlorothiazide TAB* 25 MG PO SCH ×2 (09:17→21:01)
[2018-12-11] MEDS: Acetaminophen TAB* 325 MG PO SCH ×3 (09:17→21:01)
[2018-12-11] MEDS: Losartan TAB* 25 MG PO SCH (09:18)
[2018-12-11] MEDS: Pantoprazole TAB * 40 MG TAB PO SCH (09:18)
[2018-12-11] MEDS: Ascorbic Acid TAB* 500 MG PO SCH (09:18)
[2018-12-11] MEDS: Docusate CAP* 100 MG PO SCH ×2 (09:18→21:01)
[2018-12-11] MEDS: Multivitamins/Minerals TAB PO SCH (09:18)
[2018-12-11] MEDS: hydrALAZINE TAB* 10 MG PO SCH ×2 (09:18→21:01)
[2018-12-11] MEDS: Cholecalciferol TAB* 1000 UNITS PO SCH (09:18)
[2018-12-11] MEDS: Spironolactone TAB* 25 MG PO SCH (09:24)
--- NOTE | 2018-12-11 10:46 | PN ---
Subjective Date of Service: 12/11/18 Interval History: Pt continues to have soreness in middle back. She received oxycodone last night , and states that it made her "sweaty and nauseas." She has been taking Tylenol , as well, which she finds ineffective. She also c/o muscle spasms at times. She has had no BM recently, but is urinating without difficulty. She feels distended. She c/o occasional SOB. She denies numbness, tingling, muscle weakness, vision changes. No other complaints today. Objective Active Medications: Acetaminophen (Tylenol Tab*) 975 mg PO TID BLAIR Ascorbic Acid (Vitamin C Tab*) 500 mg PO DAILY BLAIR Cholecalciferol (Vitamin D Tab*) 1,000 units PO QAM BLAIR Docusate Sodium (Colace Cap*) 100 mg PO BID BLAIR Hydralazine HCl (Apresoline Tab*) 10 mg PO BID BLAIR Hydrochlorothiazide (Hydrodiuril Tab*) 12.5 mg PO BID BLAIR Losartan Potassium (Cozaar Tab*) 50 mg PO DAILY COUNTS INCLUDE 234 BEDS AT THE [facility] Metoprolol Tartrate (Lopressor Iv*) 5 mg IV Q5M PRN Multivitamins/Minerals (Theragran/Minerals Tab*) 1 tab PO DAILY BLAIR Ondansetron HCl (Zofran Inj*) 4 mg IV Q4H PRN Oxycodone HCl (Roxycodone Tab*) 5 mg PO Q4H PRN Pantoprazole Sodium (Protonix Tab*) 40 mg PO QAM COUNTS INCLUDE 234 BEDS AT THE [facility] Polyethylene Glycol/Electrolytes (Miralax*) 17 gm PO Q12HR COUNTS INCLUDE 234 BEDS AT THE [facility] Rivaroxaban (Xarelto(*)) 15 mg PO QPM BLAIR Spironolactone (Aldactone Tab*) 25 mg PO QAM COUNTS INCLUDE 234 BEDS AT THE [facility] Vital Signs: Temp Pulse Resp BP Pulse Ox 96.8 F 61 17 156/63 99 12/11/18 08:36 12/11/18 08:36 12/11/18 08:36 12/11/18 08:36 12/11/18 08:36 Oxygen Devices in Use Now: None Appearance: Pt is elderly white woman laying in bed with HE elevated appx 30 degrees, LE elevated. She appears healthy, in no acute distress. Eyes: No Scleral Icterus, PERRLA Ears/Nose/Mouth/Throat: NL Teeth, Lips, Gums, Clear Oropharnyx, Mucous Membranes Moist Neck: NL Appearance and Movements; NL JVP, Trachea Midline Respiratory: Symmetrical Chest Expansion and Respiratory Effort, Clear to Auscultation Cardiovascular: NL Sounds; No Murmurs; No JVD, RRR, No Edema Abdominal: - - BS in all quadrants. Abdomen distended, soft, midly tender to palpation Extremities: No Edema, No Clubbing, Cyanosis Neurological: Alert and Oriented x 3, NL Sensation, - - Spine nontender to palpation Result Diagrams: 12/10/18 06:16 12/09/18 17:40 Assess/Plan/Problems-Billing Assessment: 88 PMHx AF, CVA, HTN, CKD III presents with sudden low back pain and found to have possible compression fracture at L3. - Patient Problems (1) Compression fracture of L3 vertebra Comment: -CT with findings suggestive of compression fracture at L3 -Dr. Chester consulted, notified -MRI lumbar spine shows compression fracture at L3 -Pain management: continue tylenol; d/c oxycodone; add tramadol; continue bowel regimen -Brace ordered, placed -L spine XR with brace in place -PT/OT (2) HTN (hypertension) Comment: -SBP 130-150's -Continue home medications hydralazine, HCTZ, losartan, spironolactone (3) Afib Comment: -Tele: AF, rate controlled -No home rate control medications -Continue Xarelto, renal dose (4) GERD (gastroesophageal reflux disease) Comment: -Pantoprazole (5) CKD (chronic kidney disease), stage III Comment: -Cr at baseline (6) DVT prophylaxis Comment: -Continue home xarelto (7) Full code status Status and Disposition: Observation. Discharge when stable.
[2018-12-11] MEDS ORDERED: Cyclobenzaprine TAB* 10 MG PO PRN (10:49)
[2018-12-11] MEDS: traMADol TAB* 50 MG PO PRN (14:32)
[2018-12-11] MEDS: Rivaroxaban TAB(*) 15 MG PO SCH (17:54)
[2018-12-12] MEDS: Polyethylene Glycol 3350* 17 GM PACKET PO SCH (09:57)
[2018-12-12] MEDS: Pantoprazole TAB * 40 MG TAB PO SCH (09:58)
[2018-12-12] MEDS: Acetaminophen TAB* 325 MG PO SCH ×2 (10:07→14:53)
[2018-12-12] MEDS: Multivitamins/Minerals TAB PO SCH (10:08)
[2018-12-12] MEDS: Losartan TAB* 25 MG PO SCH (10:08)
[2018-12-12] MEDS: Ascorbic Acid TAB* 500 MG PO SCH (10:08)
[2018-12-12] MEDS: Cholecalciferol TAB* 1000 UNITS PO SCH (10:08)
[2018-12-12] MEDS: Docusate CAP* 100 MG PO SCH (10:08)
[2018-12-12] MEDS: hydrALAZINE TAB* 10 MG PO SCH (10:08)
[2018-12-12] MEDS: Hydrochlorothiazide TAB* 25 MG PO SCH (10:08)
[2018-12-12] MEDS: Spironolactone TAB* 25 MG PO SCH (10:08)
[2018-12-12] MEDS: traMADol TAB* 50 MG PO PRN (12:40)
[2018-12-12 15:49] VITALS: BP 121/54
--- NOTE | 2018-12-12 19:46 | PN ---
Progress Note - Progress Note Date of Service: 12/12/18 Note: Patient seen and examined this am. Tolerates brace well. Back pain under control. Ambulates well. AAOx3 BETI Tonny 4-06/29 XR reveals no significant kyphosis. Maintain brace when Out of bed. Follow up in office in 2-4 weeks with XR of L spine Full instructions were given to patient. Appreciate IM care. Bonny Shirley MD
--- NOTE | 2018-12-12 23:28 | CONS ---
CONSULTATION NOTE: DATE OF CONSULT: 12/11/18 HISTORY OF PRESENT ILLNESS: The patient is a very pleasant 88-year-old female with a past medical history significant for AFib, hypertension, osteopenia, who was reported to have sustained injury to her back this Saturday. The patient was leaning over with her leg on the tub in order to cut her toenails and she felt significant pain in her back. The patient was brought to the emergency room because of significant back pain. I was requested to see the patient by the Internal Medicine team because of MRI showing significant findings consistent with L3 compression fracture. The patient reports that her pain has improved. She denies any weakness, numbness or tingling of her extremities. She reports that she has significant difficulty with ability to ambulate because of the pain. She denies any urinary or GI incontinence. PAST MEDICAL HISTORY: AFib, CVA, hypertension, arthritis, osteopenia, macular degeneration, bilateral hearing aids, basal cell carcinoma, chronic kidney disease. PAST SURGICAL HISTORY: Right patellar repair, lumbar disc surgery, appendectomy , right breast biopsy, cholecystectomy, hysterectomy. HOME MEDICATIONS: 1. Multivitamin. 2. Xarelto. 3. Polyethylene glycol. 4. Cholecalciferol. 5. Ascorbic acid. 6. Hydrochlorothiazide. 7. Spironolactone 8. Losartan. 9. Hydralazine. 10. Omeprazole. ALLERGIES: AMLODIPINE, MEPERIDINE, SULFA, CODEINE, and ADHESIVE. FAMILY HISTORY: Heart disease. SOCIAL HISTORY: Tobacco, negative. The patient was a smoker many years before. Alcohol, negative. Recreational drug use, negative. 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 She is a . She has 3 children and she lives alone in [place] [facility]. PHYSICAL EXAM: The patient is not in any acute distress. She is awake, alert, and oriented x3. Her pupils are equal and reactive. Cranial nerves II through XII are grossly intact. Motor 4-5/5 in all extremities. Sensory grossly intact to light touch. Deep tendon reflexes +1 bilaterally. No clonus. No Babinski. Nessa's negative. Straight leg raise test negative in the sitting position. The patient has no tenderness to palpation of the thoracic or lumbar spine. She has free range of motion of cervical spine. DIAGNOSTIC STUDIES: The patient had a CT scan of the lumbar spine revealing L3 compression fracture, rule out retropulsion. The patient had an MRI of her lumbar spine revealing increased signal changes at L3 and STIR frequencies consistent with acute fracture without evidence of retropulsion. ASSESSMENT: The patient is a very pleasant 88-year-old female with an L3 compression fracture. PLAN: The patient at this point is currently admitted to the hospital by the hospitalist team. We recommended treating with TLSO brace and obtaining upright standing x-rays. The patient did have upright standing x-rays which did not reveal any evidence of kyphosis and she tolerated the brace well. The patient was able to ambulate and her back pain has significantly improved. We will be happy to follow the patient in our office in 3 to 4 weeks with a new x- ray of her lumbar spine. Full instructions were given to the patient. Thank you for allowing us to participate in the care of this patient. Please do not hesitate to contact our office in case you have any further questions or concerns regarding the care of this patient. [id number]/[facility] #: [id number] DIXIE
--- NOTE | 2018-12-13 00:27 | DS ---
CC: Dr. Su; Dr. Shirley * DISCHARGE SUMMARY: DATE OF ADMISSION: 12/09/18 DATE OF DISCHARGE: 12/12/18 PRIMARY CARE PROVIDER: Dr. Su. OTHER PROVIDER: Dr. Shirley. ATTENDING PHYSICIAN: Abbey Sinha DO * (dictated by BONNIE Arauz). PRIMARY DIAGNOSES: 1. L3 compression fracture. 2. Hypomagnesemia. 3. Asymptomatic bacteriuria. SECONDARY DIAGNOSES: 1. Atrial fibrillation. 2. Hypertension. 3. Chronic kidney disease, stage 3. 4. History of cerebrovascular accident. 5. Basal cell carcinoma. 6. Arthritis. 7. Osteopenia. 8. Macular degeneration. 9. Bilateral hearing aids. STUDIES WHILE IN THE HOSPITAL: 1. Lumbar CT. Impression: Osteopenia with minimal loss of vertebral body height at L3 consistent with a compression fracture without osseous retropulsion , degenerative disk disease and osteoarthritis are described as above. 2. Lumbar spine MRI. Impression: Again noted is a fracture along the inferior vertebral body of L3 consistent with the compression fracture noted on previous CT, degenerative disk disease and osteoarthritis. There is neuroforaminal narrowing as noted above. There is no significant central canal stenosis. 3. Lumbar spine x-ray with brace in place. Impression: Minimal compression of the L3 vertebra. CONSULTATIONS WHILE IN THE HOSPITAL: Neurosurgery. Maintain brace when out of bed. Followup in office in 2 to 4 weeks with x-ray of L spine. Fall instructions were given to the patient. DISCHARGE MEDICATIONS: Home medications: 1. Ascorbic acid 500 mg p.o. daily. 2. Cholecalciferol 1000 units p.o. daily. 3. Hydralazine 10 mg p.o. b.i.d. 4. Hydrochlorothiazide 12.5 mg p.o. b.i.d. 5. Losartan 50 mg p.o. daily. 6. Multivitamin 1 tab p.o. daily. 7. Omeprazole 20 mg p.o. daily. 8. Polyethylene glycol 1 pow p.o. q.12 hours. 9. Rivaroxaban 15 mg p.o. at bedtime. 10. Spironolactone 25 mg p.o. daily. HISTORY OF PRESENT ILLNESS/HOSPITAL COURSE: Ms. Torrez is an 88-year-old female with past medical history of atrial fibrillation, hypertension, chronic kidney disease, who presented to the ER on 12/09/18 with complaints of low back pain. For full and complete details, please see the history and physical dictated by Rosenda Davis NP, but in short, the patient states she was clipping her toenails with her right foot resting on the tub and she felt sudden pain in the hip and back area, which prompted her to come to the ER. In the ER, a CT of the L spine was obtained and revealed likely L3 compression fracture. The patient was placed on bed rest. Neurosurgery was consulted. They recommended MRI of the L spine. This was performed and again revealed L3 compression fracture. It was recommended that the patient receive a TLSO brace. She was fitted for this and worked with Physical Therapy. She did well with physical therapy. She is able to get in and out of the brace on her own. She is stable for discharge. Neurosurgery recommends repeat standing x-ray and then followup with Neurosurgery in 2 to 4 weeks. They recommend continuing brace while out of bed, but note that the patient can remove the brace while she is in bed. Ms. Torrez is agreeable to this and eager for discharge. She does continue to have some mid back pain that she rates at 4/10. She had a headache earlier, but notes that this has gone. She also notes that she had a bowel movement today. The patient was noted to have some hypomagnesemia while in the hospital. This was repleted. Urine culture was obtained and revealed klebsiella, moderate colonies. The patient is asymptomatic. This is likely asymptomatic bacteriuria and will not be treated. REVIEW OF SYSTEMS: A 14-point review of systems has been performed and all the pertinent positives and negatives are in the HPI. All other systems are negative. PHYSICAL EXAMINATION: Vital Signs: Temperature 98.0 oral, heart rate 62, respiratory rate 16, oxygen saturation 98% on room air, blood pressure 121/54. General: Ms. Torrez is a well-developed, well-nourished, elderly white female who is sitting up in bed. She appears comfortable and in no acute distress. She has her back brace in place. Cardiovascular: Irregular rhythm. S1, S2 present without murmurs, rubs, clicks, or gallops. There is no JVD. There is no peripheral edema. Pulmonary: Symmetrical chest expansion without use of accessory muscles. Lungs: Clear to auscultation bilaterally without rhonchi, wheezes, or rubs. Abdomen: Bowel sounds noted in all quadrants. The abdomen is soft without tenderness to palpation. Musculoskeletal: The patient is nontender in the length of the spine. She has back brace in place. Upper extremities and lower extremities without pain or deformity. Neuro: The patient is awake. She is alert and oriented x3. Cranial nerves grossly intact. She has a steady gait without impairment. DISCHARGE PLAN: Ms. Torrez will be discharged to home. CONDITION: Good. DIET: Heart healthy. ACTIVITY: Continue to wear TLSO brace. May remove when in bed. Otherwise, activity as tolerated. MEDICATIONS: No new home medications. EDUCATION: 1. Repeat lumbar spine x-ray standing in 2 to 3 weeks. Order provided. 2. Follow up with primary care provider in 4 to 7 days. 3. Follow up with Dr. Shirley, Neurosurgery, in 3 to 4 weeks. Please obtain lumbar spine x-ray prior to appointment visit. 3. Follow up with [facility]. 4. Follow up with [facility]. 5. Return to the ER or nearest hospital if you experience any worsening of symptoms, increase in back pain, chest pain or discomfort, shortness of breath, dizziness, lightheadedness, loss of consciousness, high fevers, chills, night sweats, or any other worrisome signs or symptoms. This is a summarized report of a complex medical history and hospital stay. For further details, please see the entire medical record. TIME SPENT: Approximately 35 minutes were spent on this discharge, greater than half that time was spent [id number] with the patient discussing discharge plans and instructions. BONNIE RODRIGUEZ [id number]/[facility] #: [id number] DIXIE
== END 2018-12-12 17:50 | disposition home or self-care (01) ==
LOC: ED 13:10 → SSU 19:13 → INTOOBSV 12-11 08:00 → OBSVTOIN 12-11 08:00
PROVIDERS: ADMIT Hospitalist; ATTEND Hospitalist
DX: S32.039A Unspecified fracture of third lumbar vertebra, initial encounter for closed fracture (principal); X58.XXXA Exposure to other specified factors, initial encounter; Y92.9 Unspecified place or not applicable; E83.42 Hypomagnesemia; R82.71 Bacteriuria; I48.91 Unspecified atrial fibrillation; I12.9 Hypertensive chronic kidney disease with stage 1 through stage 4 chronic kidney disease, or unspecified chronic kidney disease; N18.3 Chronic kidney disease, stage 3 (moderate); Z86.73 Personal history of transient ischemic attack (TIA), and cerebral infarction without residual deficits; C44.91 Basal cell carcinoma of skin, unspecified; M19.90 Unspecified osteoarthritis, unspecified site; M85.80 Other specified disorders of bone density and structure, unspecified site; H35.30 Unspecified macular degeneration; H91.93 Unspecified hearing loss, bilateral; Z79.899 Other long term (current) drug therapy; K21.9 Gastro-esophageal reflux disease without esophagitis
CPT/HCPCS: 36415; 72100; 72131; 72148; 80053; 81003; 81015; 83735; 85025; 87077; 87086; 87186; 96365; 96366; 99283; A9270-GY; G0378; G8978-GP-CJ; G8979-GP-CI; G8987-GO-CJ; G8987-GO-CK; G8988-GO-CI; J3475